=== PATIENT | female | born 1990 | race African-American/Black ===

== ENCOUNTER 2018-11-12 19:56 | Day surgery (SDC) | payer OTHER ==
--- NOTE | 2018-11-12 23:35 | PRG ---
DATE OF SERVICE: 11/12/2018 [employer]IMARY [employer] MAINTENANCE WORKER: Ricarda Torres MD CHIEF COMPLAINT: Uterine contractions. HISTORY OF PRESENT ILLNESS: The patient is a 28-year-old, G2, P1 female with an intrauterine at 37 weeks and 6 days, presenting with uterine contractions that she has been having throughout the day. In further discussion, the patient pulled out her contraction documentation, which showed a contraction lasting a couple of minutes about once an hour since this afternoon. The patient reports mucousy discharge. Denies vaginal bleeding or leakage of fluid. She denies any recent illness, fever, fall, headache, chest pain, or shortness of breath. She has had some nausea. Denies new rashes, hip problems, knee problems, or muscle weakness. PAST MEDICAL HISTORY: Negative. PAST SURGICAL HISTORY: Negative. ALLERGIES: NO KNOWN DRUG ALLERGIES. MEDICATIONS: vitamins. SOCIAL HISTORY: Denies drug, alcohol, or tobacco use. OB LABS: Blood type is A positive. Antibody screen is negative. She is rubella immune. RPR is nonreactive. GC, chlamydia were positive in May and negative in July. Hepatitis B surface antigen nonreactive. HIV nonreactive. GBS is negative. REVIEW OF SYSTEMS: Per HPI. PHYSICAL EXAMINATION: VITAL SIGNS: Blood pressure is 131/89, heart rate of 87, saturating 100% on room air. GENERAL: She appears to be in no acute distress. She is alert, oriented, cooperative, and pleasant to interact with. HEAD: Normocephalic, atraumatic. LUNGS: Clear to auscultation bilaterally. HEART: Has regular rate and rhythm. ABDOMEN: Gravid, nontender. EXTREMITIES: Nontender, nonedematous. CERVIX: Cervical exam per nursing staff is 1 and thick, which is no change from yesterday when she was seen by Dr. Torres. heart tracing shows a baseline in the 140s with moderate long-term variability, positive 15 x 15 accelerations, no decelerations. Tocometer showing no contractions. ASSESSMENT AND PLAN: The patient is a 28-year-old, G2, P1 female with an intrauterine at 37 weeks and 6 days, here for term contractions without evidence of labor. The patient has been given reassurance and is being discharged to home. Fetus has a reactive NST. The patient has been counseled to follow up with her primary OB as scheduled, which is next Saturday. Job ID: [id number]
[2018-11-13 02:18] VITALS: BMI 60.5
[2018-11-13 02:24] VITALS: BP 128/74; TEMP 98.3
== END 2018-11-12 21:56 | disposition home or self-care (01) ==
LOC: L&D/OP 19:56
PROVIDERS: ATTEND Obstetrics & Gynecology
DX: O47.1 False labor at or after 37 completed weeks of gestation (principal); Z3A.37 37 weeks gestation of pregnancy; Z79.899 Other long term (current) drug therapy
CPT/HCPCS: 99282

== ENCOUNTER 2018-11-13 09:22 | Inpatient (IN) | payer OTHER ==
[2018-11-13 09:59] VITALS: BMI 55.7
[2018-11-13 10:09] LABS: Amnisure Test RUPTURE DETECTED (No Rupture)
[2018-11-13 10:10] LABS: Amnisure Internal Control QC ACCEPTABLE (ACCEPTABLE)
[2018-11-13] MEDS ORDERED: Promethazine HCl 25 MG/ML VIAL IM PRN ×2 (10:38→17:25)
[2018-11-13] MEDS ORDERED: hydrALAZINE 20 MG/ML VIAL SLOW IVP PRN ×2 (10:38→20:48)
[2018-11-13] MEDS ORDERED: Docusate 100 MG CAP PO PRN (10:38)
[2018-11-13] MEDS ORDERED: Ondansetron PF 4 MG/2 ML Vial IVP PRN ×3 (10:38→20:48)
[2018-11-13] MEDS ORDERED: Lactated Ringer's 1,000 ML IV SCH (10:45)
[2018-11-13] MEDS ORDERED: Bicitra 30 ML UDCUP PO SCH (10:45)
[2018-11-13] MEDS ORDERED: CEFAZOLIN 2 GM in Premix Bag 1 BAG IVPB SCH (11:00)
[2018-11-13 13:07] LABS: Hemoglobin 11.2 g/dL (12.0-16.0); Mean Corpuscular HGB CONC 33.6 g/dL (32.0-36.0); Mean Corpuscular Hemoglobin 28.3 pg (27.0-31.0); Mean Corpuscular Volume 84.3 fL (78.0-98.0); Mean Platelet Volume 9.5 fL (7.4-10.4); Platelet Count 108 thou/uL (130-400); RBC Distribution Width 13.9 % (11.5-14.5); Red Blood Cell (RBC) Count 3.96 mill/uL (4.20-5.40); White Blood Cell (WBC) Count 8.5 thou/uL (4.8-10.8)
[2018-11-13 13:41] LABS: Syphilis Antibody Nonreactive (Nonreactive); Syphilis Antibody Index 0.06 S/CO (<1.00 Non-Reactive)
[2018-11-13 13:42] LABS: HBSAg Index 0.18 S/CO (0-0.99); Hep B Surf Ag Non-Reactive S/CO (NonReactive)
[2018-11-13] MEDS ORDERED: Oxytocin 10 UNITS/ML VIAL ONE ×2 (16:23→17:36)
[2018-11-13] MEDS ORDERED: ePHEDrine/0.9% NaCl/PF SYRINGE 50 mg/10 ml ONE (16:23)
[2018-11-13] MEDS ORDERED: Ondansetron PF 4 MG/2 ML Vial ONE (16:23)
[2018-11-13] MEDS ORDERED: MORPHINE 5 MG/10 ML PF VIAL ONE (16:24)
[2018-11-13] MEDS ORDERED: Lidocaine 2% PF Inj 2 ML VIAL ONE (16:44)
[2018-11-13] MEDS ORDERED: HYDROmorphone 2 MG/ML VIAL SLOW IVP PRN (17:25)
[2018-11-13] MEDS ORDERED: L&D-Morphine 4 MG/ML VIAL SLOW IVP PRN (17:25)
[2018-11-13] MEDS ORDERED: Naloxone HCl 0.4 mg/ml Vial IVP PRN ×2 (17:25)
[2018-11-13] MEDS ORDERED: diphenhydrAMINE 50 MG/ML VIAL IVP PRN (17:25)
[2018-11-13] MEDS ORDERED: Meperidine HCl/PF 25 MG/ML VIAL SLOW IVP PRN (17:25)
[2018-11-13] MEDS ORDERED: Naloxone HCl 0.4 mg/ml Vial IV PRN (17:25)
[2018-11-13] MEDS ORDERED: Ondansetron HCl/PF 4 MG/2 ML Vial IVP PRN (17:25)
[2018-11-13] MEDS ORDERED: Promethazine HCl 25 MG SUPP PR PRN (17:25)
[2018-11-13] MEDS ORDERED: Ketorolac Tromethamine 30 MG/ML VIAL IVP PRN (17:25)
[2018-11-13] MEDS ORDERED: Ketorolac Tromethamine 30 MG/ML VIAL IVP SCH (17:30)
[2018-11-13] MEDS ORDERED: Communication Order-Pharmacy FS SCH (17:30)
[2018-11-13] MEDS ORDERED: Meperidine HCl/PF 25 MG/ML VIAL ONE (19:15)
[2018-11-13] MEDS ORDERED: NS / Oxytocin 40 units/1000ml 1,000 ML IV SCH (20:48)
[2018-11-13] MEDS ORDERED: Bisacodyl 10 MG SUPP PR PRN (20:48)
[2018-11-13] MEDS ORDERED: Meperidine HCl/PF 25 MG/ML VIAL IM PRN (20:48)
[2018-11-13] MEDS ORDERED: HYDROcodone/Acetaminophen 5/325 mg Tablet PO PRN (20:48)
[2018-11-13] MEDS ORDERED: diphenhydrAMINE 25 MG CAP PO PRN (20:48)
[2018-11-13] MEDS ORDERED: Zolpidem Tartrate 5 MG TAB PO PRN (20:48)
[2018-11-13] MEDS ORDERED: Lanolin Ointment 7 GM TUBE TOP PRN (20:48)
[2018-11-13] MEDS ORDERED: Misoprostol 200 MCG TAB PR PRN (20:48)
[2018-11-13] MEDS: Docusate Calcium (SURFAK) 240 MG CAP PO SCH (22:30)
[2018-11-13] MEDS: Ibuprofen 800 MG TAB PO SCH (22:31)
[2018-11-13] MEDS ORDERED: Sodium Chloride 0.9% 10 ML ONE (22:59)
--- NOTE | 2018-11-14 02:35 | OP ---
DATE OF PROCEDURE: 11/13/2018 RESIDENT SURGEON: Dr. Kelly Paul. ENVIRONMENTAL HEALTH NURSE SURGEON: Dr. Vicenta Méndez. ATTENDING SURGEON: Ricarda Torres MD PROCEDURE PERFORMED: Primary low transverse section. PREOPERATIVE DIAGNOSES: 1. Term intrauterine at 38.0 wks 2. Prelabor rupture of membranes. 3. Breech presentation. POSTOPERATIVE DIAGNOSES: 1. Term intrauterine , delivered. 2. Prelabor rupture of membranes. 3. Breech presentation. ANESTHESIA: Spinal. INDICATIONS: This is a 28-year-old G2, P1-0-0-1 at 38.0 weeks gestation, who presented with prelabor rupture of membrane. Bedside ultrasound was used to confirm breech presentation. Decision was made to proceed with a primary low-transverse section. DESCRIPTION OF PROCEDURE: After risks, benefits, and alternatives were explained to the patient, she gave informed consent. Preoperative antibiotics included cefazolin 2 g IV. The patient was taken to the operating room and spinal anesthesia was initiated. She was placed in the supine position with a left tilt and prepped and draped in the usual sterile fashion. A Pfannenstiel incision was made with a scalpel and carried down to the level of fascia, which was sharply nicked. The fascial cut was extended bilaterally with Ray scissors. Inferior and superior edges of the cut fascial edges were elevated with Nataly clamps and underlying rectus muscles were sharply and bluntly dissected free. The recti were divided digitally and retracted manually. The peritoneum was entered bluntly and retracted manually. The bladder blade was placed. Bladder flap was created with Metzenbaum scissors. A low transverse score was made with a scalpel and uterus was entered in the midline with a scalpel. Hysterotomy was extended manually. Infant was noted to be breech and was delivered in the usual breech fashion with no complications. Mouth and nares were bulb suctioned. Cord was clamped and cut and grossly normal male was handed to awaiting nurse. Cord gases were obtained. Cord blood was obtained. Placenta was manually extracted and found to be intact with three-vessel cord discarded. The uterus was externalized and the endometrium was curetted with a dry lap. The bladder blade was replaced and the uterus was closed with a running locking #1 chromic suture. The bladder flap was approximated using 2-0 Monocryl. Following this, hemostasis was noted. Abdomen was irrigated with saline and suctioned free of clots. Seprafilm was placed on uterus. The uterus was internalized and hysterotomy was again noted to be hemostatic. The peritoneum was brought together using 2-0 Vicryl. Recti muscles were then approximated using 2-0 Vicryl. The fascia was closed with a running nonlocking 0 Vicryl suture. The subcutaneous tissue was irrigated and bleeders were cauterized. Subcutaneous tissue was brought together using 2-0 plain gut with several layers. Skin was approximated using 4 -0 monofilament. Dermabond was used over the incision and a wound VAC was placed to keep the incision clean and dry. Pressure dressing was then applied as well. All counts were correct and the patient tolerated the procedure well, was taken to the recovery room in stable condition. ESTIMATED BLOOD LOSS: 557 mL. COMPLICATIONS: None. SPECIMENS: Cord blood sent to lab for blood type. Cord gas sent for analysis. FINDINGS: Grossly normal male infant with Apgars of 1/9 at 1 and 5 minutes respectively. Grossly normal placenta with 3-vessel cord discarded. DRAINS: Asher to gravity, draining clear urine. Job ID: [id number] [facility]
[2018-11-14] MEDS: Ibuprofen 800 MG TAB PO SCH ×3 (04:39→21:26)
[2018-11-14 05:55] LABS: Hemoglobin 10.2 g/dL (12.0-16.0); Mean Corpuscular HGB CONC 33.4 g/dL (32.0-36.0); Mean Corpuscular Hemoglobin 28.3 pg (27.0-31.0); Mean Corpuscular Volume 84.9 fL (78.0-98.0); Mean Platelet Volume 9.1 fL (7.4-10.4); Platelet Count 133 thou/uL (130-400); RBC Distribution Width 13.6 % (11.5-14.5); Red Blood Cell (RBC) Count 3.61 mill/uL (4.20-5.40); White Blood Cell (WBC) Count 12.6 thou/uL (4.8-10.8)
[2018-11-14] MEDS: Prenatal Vitamin 1 TAB PO SCH (08:35)
[2018-11-14] MEDS: Ferrous Sulfate 325 MG TAB PO SCH ×2 (08:36→18:39)
[2018-11-14] MEDS: Docusate Calcium (SURFAK) 240 MG CAP PO SCH ×2 (08:36→21:26)
[2018-11-14] MEDS ORDERED: Adacel (T-DAP) 0.5 ML SYRINGE IM ONE (09:00)
[2018-11-14] MEDS ORDERED: CEFAZOLIN 2 GM in Premix Bag 1 BAG IVPB SCH (14:00)
[2018-11-14] MEDS ORDERED: Sodium Chloride 0.9% 10 ML ONE (16:40)
[2018-11-14] MEDS: AMOXicillin 250 MG CAP PO SCH (21:26)
[2018-11-15] MEDS: HYDROcodone/Acetaminophen 5/325 mg Tablet PO PRN ×3 (00:04→20:25)
[2018-11-15] MEDS: Simethicone Chewable 80 MG TAB PO PRN ×2 (00:05→05:35)
[2018-11-15] MEDS: Ibuprofen 800 MG TAB PO SCH ×3 (05:36→21:41)
[2018-11-15] MEDS: AMOXicillin 250 MG CAP PO SCH ×2 (09:07→21:41)
[2018-11-15] MEDS: Prenatal Vitamin 1 TAB PO SCH (09:07)
[2018-11-15] MEDS: Docusate Calcium (SURFAK) 240 MG CAP PO SCH ×2 (09:07→21:42)
[2018-11-15] MEDS: Ferrous Sulfate 325 MG TAB PO SCH ×2 (09:08→18:16)
[2018-11-16] MEDS: Ibuprofen 800 MG TAB PO SCH (06:05)
[2018-11-16] MEDS: Ferrous Sulfate 325 MG TAB PO SCH (09:23)
[2018-11-16 09:48] VITALS: BP 135/74; TEMP 98.2
[2018-11-16] MEDS: AMOXicillin 250 MG CAP PO SCH (10:05)
[2018-11-16] MEDS: Docusate Calcium (SURFAK) 240 MG CAP PO SCH (10:06)
[2018-11-16] MEDS: Prenatal Vitamin 1 TAB PO SCH (10:07)
== END 2018-11-16 12:15 | disposition home or self-care (01) | DRG 788 ==
LOC: L&D/OP 09:22 → L&D 11:02 → 3SE 21:47
PROVIDERS: ADMIT Obstetrics & Gynecology; ATTEND Obstetrics & Gynecology
PROC: 10D00Z1 Extraction of Products of Conception, Low, Open Approach (ICD-10-PCS; principal; 2018-11-13)
DX: O32.1XX0 Maternal care for breech presentation, not applicable or unspecified (principal); Z3A.38 38 weeks gestation of pregnancy; Z37.0 Single live birth; O99.214 Obesity complicating childbirth; E66.01 Morbid (severe) obesity due to excess calories; O99.02 Anemia complicating childbirth; D64.9 Anemia, unspecified
CPT/HCPCS: 36415; 84112; 85027; 86780; 86850; 86900; 86901; 87340; 99282; J0690; J1956; J2001; J2175; J2274; J2405; J2590; Q0163